=== PATIENT | male | born 1965 | race Caucasian/White ===

== ENCOUNTER 2021-12-21 16:49 | Inpatient (IN) | payer OTHER ==
[2021-12-21 19:17] VITALS: BMI 26.5
[2021-12-21] MEDS ORDERED: P-EPHED 60MG/TRIPROLIDI 2.5MG TABLET PO PRN (19:39)
[2021-12-21] MEDS ORDERED: NICOTINE POLACRILEX 2 MG GUM BUC PRN (19:39)
[2021-12-21] MEDS ORDERED: NALOXONE HCL (KLOXXADO) 8 MG SPRAY NS PRN (19:39)
[2021-12-21] MEDS ORDERED: IBUPROFEN 600 MG TABLET (FP) PO PRN (19:39)
[2021-12-21] MEDS ORDERED: MAGNESIUM HYDROX 2400MG/30ML ORAL SUSPENSION 30 ML CUP PO PRN (19:39)
[2021-12-21] MEDS ORDERED: MAGNESIUM CITRATE 300 ML BOTTLE PO PRN (19:39)
[2021-12-21] MEDS ORDERED: IBUPROFEN 400 MG TABLET (FP) PO PRN (19:39)
[2021-12-21] MEDS ORDERED: BENZOCAINE/MENTHOL (CHLORASEPTIC ) LOZENGE MM PRN (19:39)
[2021-12-21] MEDS ORDERED: methaDONE HCL 10 MG TABLET (FOR DETOX USE ONLY) PO ONE (19:39)
[2021-12-21] MEDS ORDERED: NALOXONE HCL 0.4 MG/ML VIAL IM PRN (19:39)
[2021-12-21] MEDS ORDERED: PROCHLORPERAZINE MALEATE 5 MG TABLET PO PRN (19:39)
[2021-12-21] MEDS ORDERED: MAG HYDROX/AL HYDROX/SIMETH 30 ML UNIT-DOSE CUP PO PRN (19:39)
[2021-12-21] MEDS ORDERED: ACETAMINOPHEN 325 MG TABLET (FP) PO PRN (19:39)
[2021-12-21] MEDS ORDERED: guaiFENesin 200 MG/10 ML 10 ML UNIT-DOSE CUPS PO PRN (19:39)
[2021-12-21] MEDS: diazePAM 5 MG TABLET PO SCH (23:11)
[2021-12-21] MEDS: THIAMINE HCL 100 MG TABLET (FP) PO SCH (23:11)
[2021-12-21] MEDS: MELATONIN 5 MG TABLETS PO SCH (23:11)
[2021-12-22 09:06] LABS: ALBUMIN 3.2 g/dl (3.4-5.0); BLOOD UREA NITROGEN 12.5 mg/dL (7-18); CALCIUM 8.8 mg/dL (8.5-10.1); HEMATOCRIT 41.5 % (35.4-49); HEMOGLOBIN 14.1 GM/dL (11.7-16.9); MCH 28.5 pg (25.7-33.7); MCHC 34.1 g/dl (32.0-35.9); MEAN CELL VOLUME 83.5 fl (80-96); MEAN PLT VOLUME 9.3 fl (7.5-11.1); PLATELET COUNT 190 10^3/uL (134-434); RBC 4.96 M/mm3 (4.00-5.60); RDW 15.1 % (11.9-15.9); WHITE BLOOD COUNT 5.8 K/mm3 (4.0-10.0)
[2021-12-22] MEDS ORDERED: methaDONE HCL 10 MG TABLET (FOR DETOX USE ONLY) ONE (09:07)
[2021-12-22 09:09] LABS: CREATININE 0.9 mg/dL (0.55-1.3)
[2021-12-22 09:11] LABS: BILIRUBIN,TOTAL 0.4 mg/dL (0.2-1)
[2021-12-22 09:13] LABS: TOT PROT 6.2 g/dl (6.4-8.2)
[2021-12-22] MEDS: diazePAM 5 MG TABLET PO SCH ×2 (10:14→22:28)
[2021-12-22] MEDS: METHOCARBAMOL 500 MG TABLET PO PRN ×2 (10:14→17:27)
[2021-12-22] MEDS: LOPERAMIDE HCL 2 MG CAPSULE PO PRN (10:16)
[2021-12-22] MEDS: PRENATAL VITAMINS W/ FOLIC ACID TABLET (FP) PO SCH (11:21)
[2021-12-22] MEDS: NICOTINE 21 MG/24 HOURS TOPICAL PATCH TD SCH (11:21)
[2021-12-22] MEDS: cloNIDine HCL 0.1 MG TABLET PO PRN ×2 (15:45→22:29)
[2021-12-22] MEDS: ACETAMINOPHEN 325 MG TABLET (FP) PO PRN (19:19)
[2021-12-22] MEDS: THIAMINE HCL 100 MG TABLET (FP) PO SCH (22:28)
[2021-12-22] MEDS: MELATONIN 5 MG TABLETS PO SCH (22:30)
[2021-12-23] MEDS: METHOCARBAMOL 500 MG TABLET PO PRN ×4 (00:48→22:12)
[2021-12-23] MEDS: cloNIDine HCL 0.1 MG TABLET PO PRN ×2 (08:38→18:25)
[2021-12-23] MEDS: DICYCLOMINE HCL 10 MG CAPSULE PO PRN (08:38)
[2021-12-23] MEDS: LITHIUM CARBONATE 450 MG TABLET.ER PO SCH ×3 (08:55→13:31)
[2021-12-23] MEDS ORDERED: methaDONE HCL 10 MG TABLET (FOR DETOX USE ONLY) PO ONE (10:00)
[2021-12-23] MEDS: diazePAM 5 MG TABLET PO SCH ×2 (10:18→22:11)
[2021-12-23] MEDS: NICOTINE 21 MG/24 HOURS TOPICAL PATCH TD SCH (10:19)
[2021-12-23] MEDS: PRENATAL VITAMINS W/ FOLIC ACID TABLET (FP) PO SCH (10:19)
[2021-12-23] MEDS: LOPERAMIDE HCL 2 MG CAPSULE PO PRN ×2 (11:51→17:41)
[2021-12-23] MEDS: ACETAMINOPHEN 325 MG TABLET (FP) PO PRN (11:51)
[2021-12-23] MEDS: LITHIUM CARBONATE PO SCH ×2 (13:31→22:11)
[2021-12-23] MEDS: BISMUTH SUBSALICYLATE 524 MG/30 ML PO PRN ×2 (14:16→15:51)
[2021-12-23] MEDS: SPIRONOLACTONE 25 MG TABLET PO SCH (15:29)
[2021-12-23 17:17] VITALS: RESP 18
[2021-12-23] MEDS ORDERED: ONDANSETRON *ODT* 4 MG TABLET SL ONE (17:29)
[2021-12-23] MEDS ORDERED: INSULIN SLIDING SCALE (NOVOLOG) 1 VIAL SQ SCH (18:58)
[2021-12-23] MEDS ORDERED: INSULIN (NOVOLOG) ASPART 100 UNITS/ML 10ML VIAL SQ ONE (19:04)
[2021-12-23] MEDS ORDERED: INSULIN (NOVOLOG) ASPART 100 UNITS/ML 10ML VIAL ONE (19:16)
[2021-12-23] MEDS ORDERED: GABAPENTIN 400 MG CAPSULE PO SCH (22:00)
[2021-12-23] MEDS: MELATONIN 5 MG TABLETS PO SCH (22:11)
[2021-12-23] MEDS: THIAMINE HCL 100 MG TABLET (FP) PO SCH (22:11)
[2021-12-23] MEDS: CARVEDILOL 12.5 MG TABLET (FP) PO SCH (22:11)
[2021-12-24] MEDS: cloNIDine HCL 0.1 MG TABLET PO PRN ×2 (04:26→14:21)
[2021-12-24] MEDS: DICYCLOMINE HCL 10 MG CAPSULE PO PRN (04:26)
[2021-12-24] MEDS: METHOCARBAMOL 500 MG TABLET PO PRN ×2 (04:26→11:54)
[2021-12-24] MEDS ORDERED: INSULIN SLIDING SCALE (NOVOLOG) 1 VIAL SQ SCH (07:00)
[2021-12-24] MEDS ORDERED: INSULIN (NOVOLOG) ASPART 100 UNITS/ML 10ML VIAL ONE (08:20)
[2021-12-24] MEDS ORDERED: methaDONE HCL 10 MG TABLET (FOR DETOX USE ONLY) ONE (09:27)
[2021-12-24] MEDS: CARVEDILOL 12.5 MG TABLET (FP) PO SCH (10:05)
[2021-12-24] MEDS: PRENATAL VITAMINS W/ FOLIC ACID TABLET (FP) PO SCH (10:05)
[2021-12-24] MEDS: SPIRONOLACTONE 25 MG TABLET PO SCH (10:05)
[2021-12-24] MEDS: LITHIUM CARBONATE PO SCH (10:06)
[2021-12-24] MEDS: diazePAM 5 MG TABLET PO SCH (10:06)
[2021-12-24] MEDS: NICOTINE 21 MG/24 HOURS TOPICAL PATCH TD SCH (10:07)
[2021-12-24] MEDS: LOPERAMIDE HCL 2 MG CAPSULE PO PRN (10:59)
[2021-12-24 13:26] VITALS: BP 134/71; PULSE 50; TEMP 98
[2021-12-24] MEDS ORDERED: INSULIN (NOVOLOG) ASPART 100 UNITS/ML 10ML VIAL SQ SCH (16:30)
[2021-12-25] MEDS ORDERED: methaDONE HCL 10 MG TABLET (FOR DETOX USE ONLY) PO ONE (10:00)
== END 2021-12-24 15:46 | disposition left against medical advice (07) | DRG 770 ==
LOC: YASAS 16:49 → Y6N 21:33
PROVIDERS: ADMIT Allergy & Immunology; ATTEND Surgery
PROC: HZ2ZZZZ Detoxification Services for Substance Abuse Treatment (ICD-10-PCS; principal; 2021-12-21)
DX: F11.23 Opioid dependence with withdrawal (principal); F10.230 Alcohol dependence with withdrawal, uncomplicated; F14.20 Cocaine dependence, uncomplicated; F12.20 Cannabis dependence, uncomplicated; F17.210 Nicotine dependence, cigarettes, uncomplicated; F19.282 Other psychoactive substance dependence with psychoactive substance-induced sleep disorder; F19.280 Other psychoactive substance dependence with psychoactive substance-induced anxiety disorder; F19.24 Other psychoactive substance dependence with psychoactive substance-induced mood disorder; F32.9 Major depressive disorder, single episode, unspecified; G40.909 Epilepsy, unspecified, not intractable, without status epilepticus; I25.10 Atherosclerotic heart disease of native coronary artery without angina pectoris; I11.0 Hypertensive heart disease with heart failure; I50.9 Heart failure, unspecified; E78.5 Hyperlipidemia, unspecified; E11.9 Type 2 diabetes mellitus without complications; K21.9 Gastro-esophageal reflux disease without esophagitis; B18.2 Chronic viral hepatitis C; Z88.8 Allergy status to other drugs, medicaments and biological substances; Z91.013 Allergy to seafood
CPT/HCPCS: 36415; 80053; 80178; 82962; 85027; 86780; 93005; 93010; C9803-CS; J0735; Q0162; U0003; U0005

== ENCOUNTER 2022-03-13 10:19 | Inpatient (IN) | payer OTHER ==
[2022-03-13 11:05] VITALS: BMI 26.1
[2022-03-13] MEDS ORDERED: MAGNESIUM CITRATE 300 ML BOTTLE PO PRN (11:58)
[2022-03-13] MEDS ORDERED: NALOXONE HCL (KLOXXADO) 8 MG SPRAY NS PRN (11:58)
[2022-03-13] MEDS ORDERED: DICYCLOMINE HCL 10 MG CAPSULE PO PRN (11:58)
[2022-03-13] MEDS ORDERED: BISMUTH SUBSALICYLATE 262 MG/15 ML BTL PO PRN (11:58)
[2022-03-13] MEDS ORDERED: ONDANSETRON *ODT* 4 MG TABLET SL PRN (11:58)
[2022-03-13] MEDS ORDERED: BENZOCAINE/MENTHOL (CHLORASEPTIC ) LOZENGE MM PRN (11:58)
[2022-03-13] MEDS ORDERED: LOPERAMIDE HCL 2 MG CAPSULE PO PRN (11:58)
[2022-03-13] MEDS ORDERED: ACETAMINOPHEN 325 MG TABLET (FP) PO PRN ×2 (11:58)
[2022-03-13] MEDS ORDERED: IBUPROFEN 400 MG TABLET (FP) PO PRN (11:58)
[2022-03-13] MEDS ORDERED: MAG HYDROX/AL HYDROX/SIMETH 30 ML UNIT-DOSE CUP PO PRN (11:58)
[2022-03-13] MEDS ORDERED: INSULIN (NOVOLOG) ASPART 100 UNITS/ML 10ML VIAL ONE ×2 (12:17→17:15)
[2022-03-13] MEDS ORDERED: INSULIN (NOVOLOG) ASPART 100 UNITS/ML 10ML VIAL SQ ONE (12:22)
[2022-03-13] MEDS: hydrOXYzine PAMOATE 25 MG CAPSULE (FP) PO PRN (12:31)
[2022-03-13] MEDS: METHOCARBAMOL 500 MG TABLET PO PRN (12:31)
[2022-03-13] MEDS: chlordiazePOXIDE HCL 25 MG CAPSULE PO SCH ×2 (17:26→22:00)
[2022-03-13] MEDS: INSULIN SLIDING SCALE (NOVOLOG) 1 VIAL SQ SCH (17:29)
[2022-03-13 19:08] LABS: HEMATOCRIT 43.5 % (35.4-49); HEMOGLOBIN 14.7 GM/dL (11.7-16.9); MCH 30.6 pg (25.7-33.7); MCHC 33.8 g/dl (32.0-35.9); MEAN CELL VOLUME 90.6 fl (80-96); MEAN PLT VOLUME 9.5 fl (7.5-11.1); PLATELET COUNT 196 10^3/uL (134-434); RBC 4.81 M/mm3 (4.00-5.60); RDW 13.9 % (11.9-15.9); WHITE BLOOD COUNT 4.9 K/mm3 (4.0-10.0)
[2022-03-13 19:12] LABS: ALBUMIN 3.5 g/dl (3.4-5.0)
[2022-03-13 19:15] LABS: BLOOD UREA NITROGEN 19.1 mg/dL (7-18)
[2022-03-13 19:17] LABS: CREATININE 1.1 mg/dL (0.55-1.3)
[2022-03-13 19:19] LABS: BILIRUBIN,TOTAL 0.3 mg/dL (0.2-1); TOT PROT 6.3 g/dl (6.4-8.2)
[2022-03-13] MEDS: THIAMINE HCL 100 MG TABLET (FP) PO SCH (21:57)
[2022-03-13] MEDS: CARVEDILOL 12.5 MG TABLET (FP) PO SCH (21:58)
[2022-03-13] MEDS ORDERED: MELATONIN 5 MG TABLETS PO SCH (22:00)
[2022-03-14] MEDS: chlordiazePOXIDE HCL 25 MG CAPSULE PO SCH ×4 (06:27→22:05)
[2022-03-14] MEDS ORDERED: INSULIN (NOVOLOG) ASPART 100 UNITS/ML 10ML VIAL ONE ×4 (07:41→22:14)
[2022-03-14] MEDS: METHOCARBAMOL 500 MG TABLET PO PRN ×2 (07:42→19:32)
[2022-03-14] MEDS: hydrOXYzine PAMOATE 25 MG CAPSULE (FP) PO PRN (07:42)
[2022-03-14] MEDS: IBUPROFEN 600 MG TABLET (FP) PO PRN (07:42)
[2022-03-14] MEDS: INSULIN SLIDING SCALE (NOVOLOG) 1 VIAL SQ SCH ×5 (07:43→22:13)
[2022-03-14] MEDS ORDERED: METHADONE PO SCH (09:30)
[2022-03-14] MEDS: PRENATAL VITAMINS W/ FOLIC ACID TABLET (FP) PO SCH (10:23)
[2022-03-14] MEDS: CARVEDILOL 12.5 MG TABLET (FP) PO SCH ×2 (10:25→22:06)
[2022-03-14] MEDS: MAGNESIUM HYDROX 2400MG/30ML ORAL SUSPENSION 30 ML CUP PO PRN (13:51)
[2022-03-14] MEDS: chlordiazePOXIDE HCL 25 MG CAPSULE PO PRN ×2 (13:53→19:33)
[2022-03-14] MEDS: NICOTINE 10 MG CARTRIDGE (INHALER) IH PRN (20:39)
[2022-03-14] MEDS: SUVOREXANT 10 MG TABLET PO PRN (22:06)
[2022-03-14] MEDS: THIAMINE HCL 100 MG TABLET (FP) PO SCH (22:08)
[2022-03-15] MEDS: IBUPROFEN 600 MG TABLET (FP) PO PRN ×2 (00:46→10:27)
[2022-03-15] MEDS: chlordiazePOXIDE HCL 10 MG CAPSULE PO PRN ×3 (00:47→20:24)
[2022-03-15] MEDS: NICOTINE 10 MG CARTRIDGE (INHALER) IH PRN ×2 (00:48→10:33)
[2022-03-15] MEDS: chlordiazePOXIDE HCL 10 MG CAPSULE PO SCH ×4 (05:42→22:27)
[2022-03-15] MEDS ORDERED: INSULIN (NOVOLOG) ASPART 100 UNITS/ML 10ML VIAL ONE ×4 (05:45→23:14)
[2022-03-15] MEDS: INSULIN SLIDING SCALE (NOVOLOG) 1 VIAL SQ SCH ×4 (06:30→22:28)
[2022-03-15] MEDS: PRENATAL VITAMINS W/ FOLIC ACID TABLET (FP) PO SCH (10:24)
[2022-03-15] MEDS: CARVEDILOL 12.5 MG TABLET (FP) PO SCH ×2 (10:24→22:27)
[2022-03-15] MEDS: METHOCARBAMOL 500 MG TABLET PO PRN ×2 (10:27→17:56)
[2022-03-15] MEDS: MAGNESIUM HYDROX 2400MG/30ML ORAL SUSPENSION 30 ML CUP PO PRN (11:36)
[2022-03-15] MEDS: hydrOXYzine PAMOATE 25 MG CAPSULE (FP) PO PRN ×3 (13:19→22:28)
[2022-03-15] MEDS: THIAMINE HCL 100 MG TABLET (FP) PO SCH (22:27)
[2022-03-15] MEDS: SUVOREXANT 10 MG TABLET PO PRN (22:29)
[2022-03-16] MEDS: METHOCARBAMOL 500 MG TABLET PO PRN ×2 (02:14→10:18)
[2022-03-16] MEDS ORDERED: chlordiazePOXIDE HCL 10 MG CAPSULE PO SCH (05:00)
[2022-03-16] MEDS: NICOTINE 10 MG CARTRIDGE (INHALER) IH PRN ×2 (07:15→10:25)
[2022-03-16] MEDS ORDERED: INSULIN (NOVOLOG) ASPART 100 UNITS/ML 10ML VIAL ONE (08:16)
[2022-03-16] MEDS: INSULIN SLIDING SCALE (NOVOLOG) 1 VIAL SQ SCH ×2 (08:23→11:32)
[2022-03-16] MEDS: PRENATAL VITAMINS W/ FOLIC ACID TABLET (FP) PO SCH (10:18)
[2022-03-16] MEDS: hydrOXYzine PAMOATE 25 MG CAPSULE (FP) PO PRN (10:18)
[2022-03-16] MEDS: CARVEDILOL 12.5 MG TABLET (FP) PO SCH (10:18)
[2022-03-16] MEDS ORDERED: NICOTINE POLACRILEX 4 MG GUM BUC PRN (11:34)
[2022-03-16] MEDS ORDERED: NICOTINE 21 MG/24 HOURS TOPICAL PATCH TD SCH (11:45)
[2022-03-16 15:34] VITALS: BP 123/50; PULSE 60; RESP 19; TEMP 97.7
[2022-03-16] MEDS ORDERED: INSULIN (LEVEMIR) 100 UNITS/ML UNITS SQ SCH (22:00)
[2022-03-17] MEDS ORDERED: chlordiazePOXIDE HCL 10 MG CAPSULE PO ONE (05:00)
== END 2022-03-16 16:45 | disposition home or self-care (01) | DRG 773 ==
LOC: YASAS 10:19 → Y6N 11:52
PROVIDERS: ADMIT Allergy & Immunology; ATTEND Surgery
PROC: HZ2ZZZZ Detoxification Services for Substance Abuse Treatment (ICD-10-PCS; principal; 2022-03-13)
DX: F10.230 Alcohol dependence with withdrawal, uncomplicated (principal); F11.20 Opioid dependence, uncomplicated; F14.20 Cocaine dependence, uncomplicated; F16.20 Hallucinogen dependence, uncomplicated; F17.210 Nicotine dependence, cigarettes, uncomplicated; I25.10 Atherosclerotic heart disease of native coronary artery without angina pectoris; I11.0 Hypertensive heart disease with heart failure; I50.9 Heart failure, unspecified; K21.9 Gastro-esophageal reflux disease without esophagitis; E11.65 Type 2 diabetes mellitus with hyperglycemia; Z79.4 Long term (current) use of insulin; Z86.19 Personal history of other infectious and parasitic diseases; Z88.8 Allergy status to other drugs, medicaments and biological substances; Z91.013 Allergy to seafood
CPT/HCPCS: 36415; 80053; 82962; 85027; 86780; 87811; C9803-CS; U0003; U0005

== ENCOUNTER 2022-05-19 10:43 | Inpatient (IN) | payer OTHER ==
[2022-05-19 11:38] VITALS: BMI 25.0
[2022-05-19] MEDS ORDERED: MAG HYDROX/AL HYDROX/SIMETH 30 ML UNIT-DOSE CUP PO PRN (12:00)
[2022-05-19] MEDS ORDERED: chlordiazePOXIDE HCL 25 MG CAPSULE PO ONE (12:00)
[2022-05-19] MEDS ORDERED: MAGNESIUM HYDROX 2400MG/30ML ORAL SUSPENSION 30 ML CUP PO PRN (12:00)
[2022-05-19] MEDS ORDERED: ACETAMINOPHEN 325 MG TABLET (FP) PO PRN (12:00)
[2022-05-19] MEDS ORDERED: POLYETHYLENE GLYCOL (HEALTHYLAX) 3350 17 GM PACKET PO PRN (12:00)
[2022-05-19] MEDS ORDERED: DICYCLOMINE HCL 10 MG CAPSULE PO PRN (12:00)
[2022-05-19] MEDS ORDERED: LOPERAMIDE HCL 2 MG CAPSULE PO PRN (12:00)
[2022-05-19] MEDS ORDERED: BISMUTH SUBSALICYLATE 262 MG/15 ML BTL PO PRN (12:00)
[2022-05-19] MEDS ORDERED: BENZOCAINE/MENTHOL (CHLORASEPTIC ) LOZENGE MM PRN (12:00)
[2022-05-19] MEDS ORDERED: NALOXONE HCL (KLOXXADO) 8 MG SPRAY NS PRN (12:00)
[2022-05-19] MEDS ORDERED: ONDANSETRON *ODT* 4 MG TABLET SL PRN (12:00)
[2022-05-19] MEDS ORDERED: hydrOXYzine PAMOATE 25 MG CAPSULE (FP) PO PRN (12:00)
[2022-05-19] MEDS: cloNIDine HCL 0.1 MG TABLET PO SCH ×2 (14:29→22:18)
[2022-05-19] MEDS: METHOCARBAMOL 500 MG TABLET PO PRN (14:29)
[2022-05-19] MEDS: NICOTINE 21 MG/24 HOURS TOPICAL PATCH TD SCH (14:31)
[2022-05-19] MEDS: PRENATAL VITAMINS W/ FOLIC ACID TABLET (FP) PO SCH (14:31)
[2022-05-19] MEDS: chlordiazePOXIDE HCL 25 MG CAPSULE PO SCH ×3 (14:45→22:17)
[2022-05-19 17:35] LABS: HEMATOCRIT 41.4 % (35.4-49); HEMOGLOBIN 13.6 GM/dL (11.7-16.9); MCH 29.6 pg (25.7-33.7); MCHC 32.9 g/dl (32.0-35.9); MEAN CELL VOLUME 89.9 fl (80-96); MEAN PLT VOLUME 9.7 fl (7.5-11.1); PLATELET COUNT 240 10^3/uL (134-434); RDW 13.4 % (11.9-15.9); WHITE BLOOD COUNT 6.1 K/mm3 (4.0-10.0)
[2022-05-19] MEDS: ACETAMINOPHEN 325 MG TABLET (FP) PO PRN (17:35)
[2022-05-19 17:42] LABS: ALBUMIN 3.1 g/dl (3.4-5.0); CALCIUM 8.7 mg/dL (8.5-10.1)
[2022-05-19 17:43] LABS: BLOOD UREA NITROGEN 10.6 mg/dL (7-18)
[2022-05-19 17:46] LABS: CREATININE 1.1 mg/dL (0.55-1.3)
[2022-05-19 17:47] LABS: BILIRUBIN,TOTAL 0.5 mg/dL (0.2-1); TOT PROT 6.2 g/dl (6.4-8.2)
[2022-05-19] MEDS: INSULIN (LEVEMIR) 100 UNITS/ML UNITS SQ SCH (21:28)
[2022-05-19] MEDS: INSULIN SLIDING SCALE (NOVOLOG) 1 VIAL SQ SCH (21:38)
[2022-05-19] MEDS: MELATONIN 5 MG TABLETS PO SCH (22:18)
[2022-05-19] MEDS: THIAMINE HCL 100 MG TABLET (FP) PO SCH (22:18)
[2022-05-19] MEDS: LITHIUM CARBONATE 450 MG TABLET.ER PO SCH (22:20)
[2022-05-19] MEDS: CARVEDILOL 12.5 MG TABLET (FP) PO SCH (22:20)
[2022-05-20] MEDS: chlordiazePOXIDE HCL 25 MG CAPSULE PO SCH ×4 (05:40→22:13)
[2022-05-20] MEDS: ACETAMINOPHEN 325 MG TABLET (FP) PO PRN (05:44)
[2022-05-20] MEDS: cloNIDine HCL 0.1 MG TABLET PO SCH ×3 (07:04→22:11)
[2022-05-20] MEDS ORDERED: INSULIN SLIDING SCALE (NOVOLOG) 1 VIAL SQ ONE (07:40)
[2022-05-20] MEDS: INSULIN SLIDING SCALE (NOVOLOG) 1 VIAL SQ SCH ×4 (07:43→22:15)
[2022-05-20] MEDS ORDERED: methaDONE HCL 10 MG TABLET PO SCH ×2 (08:30→08:45)
[2022-05-20] MEDS ORDERED: methaDONE 80 MG, methaDONE 20 MG PO SCH (09:05)
[2022-05-20] MEDS: methaDONE 80 MG, methaDONE 20 MG PO SCH (10:19)
[2022-05-20] MEDS: PRENATAL VITAMINS W/ FOLIC ACID TABLET (FP) PO SCH (10:19)
[2022-05-20] MEDS: NICOTINE 21 MG/24 HOURS TOPICAL PATCH TD SCH (10:19)
[2022-05-20] MEDS: NICOTINE 10 MG CARTRIDGE (INHALER) IH PRN (10:24)
[2022-05-20] MEDS: CARVEDILOL 12.5 MG TABLET (FP) PO SCH ×2 (11:05→22:12)
[2022-05-20] MEDS: SPIRONOLACTONE 25 MG TABLET PO SCH (11:06)
[2022-05-20] MEDS: LITHIUM CARBONATE 450 MG TABLET.ER PO SCH ×2 (11:09→22:13)
[2022-05-20] MEDS: METHOCARBAMOL 500 MG TABLET PO PRN (11:20)
[2022-05-20] MEDS: chlordiazePOXIDE HCL 25 MG CAPSULE PO PRN (13:51)
[2022-05-20] MEDS: IBUPROFEN 600 MG TABLET (FP) PO PRN (20:49)
[2022-05-20] MEDS: THIAMINE HCL 100 MG TABLET (FP) PO SCH (22:11)
[2022-05-20] MEDS: INSULIN (LEVEMIR) 100 UNITS/ML UNITS SQ SCH (22:17)
[2022-05-20] MEDS: MELATONIN 5 MG TABLETS PO SCH (22:48)
[2022-05-21] MEDS: chlordiazePOXIDE HCL 25 MG CAPSULE PO PRN ×3 (00:55→19:36)
[2022-05-21] MEDS: methaDONE 80 MG, methaDONE 20 MG PO SCH (05:31)
[2022-05-21] MEDS: chlordiazePOXIDE HCL 25 MG CAPSULE PO SCH ×4 (05:32→22:18)
[2022-05-21] MEDS: cloNIDine HCL 0.1 MG TABLET PO SCH ×3 (06:33→22:16)
[2022-05-21] MEDS: IBUPROFEN 600 MG TABLET (FP) PO PRN (06:33)
[2022-05-21] MEDS: INSULIN SLIDING SCALE (NOVOLOG) 1 VIAL SQ SCH ×4 (07:49→22:21)
[2022-05-21] MEDS: SPIRONOLACTONE 25 MG TABLET PO SCH (10:17)
[2022-05-21] MEDS: CARVEDILOL 12.5 MG TABLET (FP) PO SCH ×2 (10:17→22:17)
[2022-05-21] MEDS: PRENATAL VITAMINS W/ FOLIC ACID TABLET (FP) PO SCH (10:17)
[2022-05-21] MEDS: LITHIUM CARBONATE 450 MG TABLET.ER PO SCH (10:17)
[2022-05-21] MEDS: ACETAMINOPHEN 325 MG TABLET (FP) PO PRN (10:19)
[2022-05-21] MEDS: NICOTINE 21 MG/24 HOURS TOPICAL PATCH TD SCH (10:20)
[2022-05-21] MEDS: METHOCARBAMOL 500 MG TABLET PO PRN (11:07)
[2022-05-21] MEDS: IBUPROFEN 400 MG TABLET (FP) PO PRN (12:27)
[2022-05-21] MEDS: NICOTINE 10 MG CARTRIDGE (INHALER) IH PRN (21:14)
[2022-05-21] MEDS: THIAMINE HCL 100 MG TABLET (FP) PO SCH (22:16)
[2022-05-21] MEDS: MELATONIN 5 MG TABLETS PO SCH (22:17)
[2022-05-21] MEDS: INSULIN (LEVEMIR) 100 UNITS/ML UNITS SQ SCH (22:22)
[2022-05-22] MEDS: IBUPROFEN 600 MG TABLET (FP) PO PRN (03:09)
[2022-05-22] MEDS: METHOCARBAMOL 500 MG TABLET PO PRN ×3 (03:09→23:17)
[2022-05-22] MEDS: chlordiazePOXIDE HCL 10 MG CAPSULE PO PRN ×3 (03:10→19:16)
[2022-05-22] MEDS: methaDONE 80 MG, methaDONE 20 MG PO SCH (05:54)
[2022-05-22] MEDS: chlordiazePOXIDE HCL 10 MG CAPSULE PO SCH ×4 (05:57→22:10)
[2022-05-22] MEDS: cloNIDine HCL 0.1 MG TABLET PO SCH ×3 (06:20→23:15)
[2022-05-22] MEDS ORDERED: INSULIN SLIDING SCALE (NOVOLOG) 1 VIAL SQ ONE (08:02)
[2022-05-22] MEDS: INSULIN SLIDING SCALE (NOVOLOG) 1 VIAL SQ SCH ×4 (08:09→22:15)
[2022-05-22] MEDS: SPIRONOLACTONE 25 MG TABLET PO SCH (10:19)
[2022-05-22] MEDS: CARVEDILOL 12.5 MG TABLET (FP) PO SCH ×2 (10:19→23:20)
[2022-05-22] MEDS: PRENATAL VITAMINS W/ FOLIC ACID TABLET (FP) PO SCH (10:19)
[2022-05-22] MEDS: NICOTINE 21 MG/24 HOURS TOPICAL PATCH TD SCH (10:22)
[2022-05-22] MEDS: NICOTINE 10 MG CARTRIDGE (INHALER) IH PRN ×2 (10:54→19:47)
[2022-05-22 11:59] LABS: BLOOD UREA NITROGEN 14.7 mg/dL (7-18)
[2022-05-22 12:00] LABS: CALCIUM 9.9 mg/dL (8.5-10.1)
[2022-05-22 12:02] LABS: CREATININE 1.2 mg/dL (0.55-1.3)
[2022-05-22] MEDS: IBUPROFEN 400 MG TABLET (FP) PO PRN (17:52)
[2022-05-22] MEDS: THIAMINE HCL 100 MG TABLET (FP) PO SCH (22:11)
[2022-05-22] MEDS: MELATONIN 5 MG TABLETS PO SCH (22:11)
[2022-05-22] MEDS: INSULIN (LEVEMIR) 100 UNITS/ML UNITS SQ SCH (22:18)
[2022-05-22] MEDS: ACETAMINOPHEN 325 MG TABLET (FP) PO PRN (23:17)
[2022-05-23] MEDS: IBUPROFEN 600 MG TABLET (FP) PO PRN (03:16)
[2022-05-23] MEDS ORDERED: chlordiazePOXIDE HCL 10 MG CAPSULE PO SCH (05:00)
[2022-05-23] MEDS: methaDONE 80 MG, methaDONE 20 MG PO SCH (05:30)
[2022-05-23] MEDS: cloNIDine HCL 0.1 MG TABLET PO SCH ×2 (06:17→13:22)
[2022-05-23] MEDS ORDERED: INSULIN SLIDING SCALE (NOVOLOG) 1 VIAL SQ ONE (06:28)
[2022-05-23] MEDS: INSULIN SLIDING SCALE (NOVOLOG) 1 VIAL SQ SCH ×2 (06:49→11:51)
[2022-05-23] MEDS: METHOCARBAMOL 500 MG TABLET PO PRN (06:54)
[2022-05-23] MEDS: ACETAMINOPHEN 325 MG TABLET (FP) PO PRN (06:54)
[2022-05-23] MEDS: NICOTINE 10 MG CARTRIDGE (INHALER) IH PRN ×2 (07:30→11:44)
[2022-05-23] MEDS: PRENATAL VITAMINS W/ FOLIC ACID TABLET (FP) PO SCH (10:29)
[2022-05-23] MEDS: NICOTINE 21 MG/24 HOURS TOPICAL PATCH TD SCH (10:29)
[2022-05-23] MEDS: CARVEDILOL 12.5 MG TABLET (FP) PO SCH (10:29)
[2022-05-23] MEDS: SPIRONOLACTONE 25 MG TABLET PO SCH (10:29)
[2022-05-23 14:48] VITALS: BP 129/68; PULSE 62; RESP 18; TEMP 97.1
[2022-05-23] MEDS ORDERED: INSULIN (LEVEMIR) 100 UNITS/ML UNITS SQ SCH (22:00)
[2022-05-24] MEDS ORDERED: chlordiazePOXIDE HCL 10 MG CAPSULE PO ONE (05:00)
== END 2022-05-23 15:24 | disposition home or self-care (01) | DRG 773 ==
LOC: YASAS 10:43 → Y3N 13:52
PROVIDERS: ADMIT Allergy & Immunology; ATTEND Surgery
PROC: HZ2ZZZZ Detoxification Services for Substance Abuse Treatment (ICD-10-PCS; principal; 2022-05-19)
DX: F11.20 Opioid dependence, uncomplicated (principal); F14.20 Cocaine dependence, uncomplicated; F12.20 Cannabis dependence, uncomplicated; F17.210 Nicotine dependence, cigarettes, uncomplicated; F31.9 Bipolar disorder, unspecified; F41.9 Anxiety disorder, unspecified; F90.9 Attention-deficit hyperactivity disorder, unspecified type; I25.10 Atherosclerotic heart disease of native coronary artery without angina pectoris; I11.0 Hypertensive heart disease with heart failure; I50.9 Heart failure, unspecified; E11.65 Type 2 diabetes mellitus with hyperglycemia; Z79.4 Long term (current) use of insulin; E78.5 Hyperlipidemia, unspecified; K21.9 Gastro-esophageal reflux disease without esophagitis; Z86.69 Personal history of other diseases of the nervous system and sense organs; Z86.19 Personal history of other infectious and parasitic diseases; Z88.8 Allergy status to other drugs, medicaments and biological substances; Z91.013 Allergy to seafood
CPT/HCPCS: 36415; 80048; 80053; 80178; 82962; 85027; 86780; C9803-CS; Q0162; U0003; U0005

== ENCOUNTER 2023-01-23 13:32 | Inpatient (IN) | payer OTHER ==
[2023-01-23 14:25] VITALS: BMI 29.0
[2023-01-23] MEDS ORDERED: MAGNESIUM HYDROX 2400MG/30ML ORAL SUSPENSION 30 ML CUP PO PRN (15:10)
[2023-01-23] MEDS ORDERED: POLYETHYLENE GLYCOL (HEALTHYLAX) 3350 17 GM PACKET PO PRN (15:10)
[2023-01-23] MEDS ORDERED: P-EPHED 60MG/TRIPROLIDI 2.5MG TABLET PO PRN (15:10)
[2023-01-23] MEDS ORDERED: NICOTINE POLACRILEX 2 MG GUM BUC PRN (15:10)
[2023-01-23] MEDS ORDERED: guaiFENesin 600 MG TABLET.ER (FP) PO PRN (15:10)
[2023-01-23] MEDS ORDERED: IBUPROFEN 400 MG TABLET (FP) PO PRN (15:10)
[2023-01-23] MEDS ORDERED: BENZOCAINE/MENTHOL (CHLORASEPTIC ) LOZENGE MM PRN (15:10)
[2023-01-23] MEDS ORDERED: BENZONATATE 200 MG CAPSULE PO PRN (15:10)
[2023-01-23] MEDS ORDERED: ONDANSETRON *ODT* 4 MG TABLET SL PRN (15:10)
[2023-01-23] MEDS ORDERED: MAG HYDROX/AL HYDROX/SIMETH 30 ML UNIT-DOSE CUP PO PRN (15:10)
[2023-01-23] MEDS ORDERED: NALOXONE HCL (KLOXXADO) 8 MG SPRAY NS PRN (15:10)
[2023-01-23] MEDS ORDERED: ACETAMINOPHEN 325 MG TABLET (FP) PO PRN (15:10)
[2023-01-23] MEDS ORDERED: NALOXONE HCL 0.4 MG/ML VIAL IM PRN (15:10)
[2023-01-23] MEDS ORDERED: INSULIN (NOVOLOG) ASPART 100 UNITS/ML 10ML VIAL ONE (16:39)
[2023-01-23] MEDS: INSULIN SLIDING SCALE (NOVOLOG) 1 VIAL SQ SCH ×2 (16:41→22:21)
[2023-01-23] MEDS: chlordiazePOXIDE HCL 25 MG CAPSULE PO PRN (18:25)
[2023-01-23] MEDS: THIAMINE HCL 100 MG TABLET (FP) PO SCH (22:19)
[2023-01-23] MEDS: MELATONIN 5 MG TABLETS PO SCH (22:19)
[2023-01-23] MEDS: levETIRAcetam 500 MG TABLET (FP) PO SCH (22:19)
[2023-01-23] MEDS: chlordiazePOXIDE HCL 25 MG CAPSULE PO SCH (22:21)
[2023-01-24] MEDS: METHOCARBAMOL 500 MG TABLET PO PRN ×3 (00:35→17:22)
[2023-01-24] MEDS: chlordiazePOXIDE HCL 25 MG CAPSULE PO PRN ×2 (00:36→13:49)
[2023-01-24] MEDS: chlordiazePOXIDE HCL 25 MG CAPSULE PO SCH ×4 (05:45→22:00)
[2023-01-24] MEDS: INSULIN SLIDING SCALE (NOVOLOG) 1 VIAL SQ SCH ×4 (06:12→21:56)
[2023-01-24] MEDS ORDERED: INSULIN SLIDING SCALE (NOVOLOG) 1 VIAL SQ ONE (06:27)
[2023-01-24] MEDS: PRENATAL VITAMINS W/ FOLIC ACID TABLET (FP) PO SCH (10:10)
[2023-01-24] MEDS: levETIRAcetam 500 MG TABLET (FP) PO SCH ×2 (10:10→21:59)
[2023-01-24 10:40] LABS: HEMATOCRIT 37.3 % (35.4-49); HEMOGLOBIN 12.2 GM/dL (11.7-16.9); MCH 28.7 pg (25.7-33.7); MCHC 32.6 g/dl (32.0-35.9); MEAN CELL VOLUME 88.3 fl (80-96); MEAN PLT VOLUME 10.4 fl (7.5-11.1); PLATELET COUNT 158 10^3/uL (134-434); RBC 4.23 M/mm3 (4.00-5.60); WHITE BLOOD COUNT 4.1 K/mm3 (4.0-10.0)
[2023-01-24 10:41] LABS: CALCIUM 8.7 mg/dL (8.5-10.1)
[2023-01-24 10:43] LABS: ALBUMIN 2.8 g/dl (3.4-5.0); BLOOD UREA NITROGEN 13.2 mg/dL (7-18)
[2023-01-24 10:45] LABS: CREATININE 0.8 mg/dL (0.55-1.3)
[2023-01-24 10:47] LABS: BILIRUBIN,TOTAL 0.2 mg/dL (0.2-1); TOT PROT 5.6 g/dl (6.4-8.2)
[2023-01-24] MEDS ORDERED: methaDONE HCL 10 MG TABLET PO SCH (12:00)
[2023-01-24] MEDS: GABAPENTIN 300 MG CAPSULE PO SCH ×2 (15:08→21:59)
[2023-01-24] MEDS: SPIRONOLACTONE 25 MG TABLET PO SCH (15:08)
[2023-01-24] MEDS: LISINOPRIL 20 MG TABLET PO SCH (15:08)
[2023-01-24] MEDS: MELATONIN 5 MG TABLETS PO SCH (21:58)
[2023-01-24] MEDS: CARVEDILOL 12.5 MG TABLET (FP) PO SCH (21:59)
[2023-01-24] MEDS: DIVALPROEX SODIUM 500 MG TABLET E.C. PO SCH (21:59)
[2023-01-24] MEDS: THIAMINE HCL 100 MG TABLET (FP) PO SCH (21:59)
[2023-01-25] MEDS: chlordiazePOXIDE HCL 25 MG CAPSULE PO PRN (01:05)
[2023-01-25] MEDS: METHOCARBAMOL 500 MG TABLET PO PRN ×4 (01:05→22:06)
[2023-01-25] MEDS: chlordiazePOXIDE HCL 25 MG CAPSULE PO SCH ×4 (05:42→22:06)
[2023-01-25] MEDS: GABAPENTIN 300 MG CAPSULE PO SCH ×3 (05:43→22:05)
[2023-01-25] MEDS: INSULIN SLIDING SCALE (NOVOLOG) 1 VIAL SQ SCH ×4 (08:14→22:07)
[2023-01-25] MEDS: LISINOPRIL 20 MG TABLET PO SCH (10:08)
[2023-01-25] MEDS: SPIRONOLACTONE 25 MG TABLET PO SCH (10:09)
[2023-01-25] MEDS: CARVEDILOL 12.5 MG TABLET (FP) PO SCH ×2 (10:09→22:04)
[2023-01-25] MEDS: levETIRAcetam 500 MG TABLET (FP) PO SCH ×2 (10:09→22:04)
[2023-01-25] MEDS: DIVALPROEX SODIUM 500 MG TABLET E.C. PO SCH ×2 (10:09→22:05)
[2023-01-25] MEDS: PRENATAL VITAMINS W/ FOLIC ACID TABLET (FP) PO SCH (10:10)
[2023-01-25] MEDS: NICOTINE 21 MG/24 HOURS TOPICAL PATCH TD SCH (10:39)
[2023-01-25] MEDS: IBUPROFEN 600 MG TABLET (FP) PO PRN (19:21)
[2023-01-25] MEDS: MELATONIN 5 MG TABLETS PO SCH (22:04)
[2023-01-25] MEDS: THIAMINE HCL 100 MG TABLET (FP) PO SCH (22:05)
[2023-01-26] MEDS ORDERED: chlordiazePOXIDE HCL 10 MG CAPSULE PO PRN
[2023-01-26] MEDS: GABAPENTIN 300 MG CAPSULE PO SCH ×3 (05:35→22:29)
[2023-01-26] MEDS: chlordiazePOXIDE HCL 10 MG CAPSULE PO SCH ×4 (05:36→22:31)
[2023-01-26] MEDS: LOPERAMIDE HCL 2 MG CAPSULE PO PRN ×2 (05:40→15:56)
[2023-01-26] MEDS: INSULIN SLIDING SCALE (NOVOLOG) 1 VIAL SQ SCH ×3 (06:02→17:22)
[2023-01-26] MEDS: METHOCARBAMOL 500 MG TABLET PO PRN ×2 (07:36→18:36)
[2023-01-26] MEDS: IBUPROFEN 600 MG TABLET (FP) PO PRN (08:37)
[2023-01-26] MEDS: LISINOPRIL 20 MG TABLET PO SCH (09:59)
[2023-01-26] MEDS: DIVALPROEX SODIUM 500 MG TABLET E.C. PO SCH ×2 (09:59→22:29)
[2023-01-26] MEDS: levETIRAcetam 500 MG TABLET (FP) PO SCH (09:59)
[2023-01-26] MEDS: SPIRONOLACTONE 25 MG TABLET PO SCH (09:59)
[2023-01-26] MEDS: CARVEDILOL 12.5 MG TABLET (FP) PO SCH ×2 (09:59→22:29)
[2023-01-26] MEDS: PRENATAL VITAMINS W/ FOLIC ACID TABLET (FP) PO SCH (10:00)
[2023-01-26] MEDS: NICOTINE 21 MG/24 HOURS TOPICAL PATCH TD SCH (10:02)
[2023-01-26] MEDS: BISMUTH SUBSALICYLATE 524 MG/30 ML PO PRN (22:28)
[2023-01-26] MEDS: MELATONIN 5 MG TABLETS PO SCH (22:29)
[2023-01-26] MEDS: INSULIN (LEVEMIR) 100 UNITS/ML UNITS SQ SCH (22:29)
[2023-01-26] MEDS: THIAMINE HCL 100 MG TABLET (FP) PO SCH (22:29)
[2023-01-27] MEDS: METHOCARBAMOL 500 MG TABLET PO PRN ×3 (00:38→17:24)
[2023-01-27] MEDS: IBUPROFEN 600 MG TABLET (FP) PO PRN ×2 (00:38→17:25)
[2023-01-27] MEDS: BISMUTH SUBSALICYLATE 524 MG/30 ML PO PRN ×3 (01:47→11:41)
[2023-01-27] MEDS: chlordiazePOXIDE HCL 10 MG CAPSULE PO SCH ×2 (05:59→17:25)
[2023-01-27] MEDS: GABAPENTIN 300 MG CAPSULE PO SCH ×3 (06:02→21:55)
[2023-01-27] MEDS: INSULIN SLIDING SCALE (NOVOLOG) 1 VIAL SQ SCH ×3 (06:26→17:24)
[2023-01-27] MEDS: LOPERAMIDE HCL 2 MG CAPSULE PO PRN ×3 (06:31→22:57)
[2023-01-27] MEDS: DIVALPROEX SODIUM 500 MG TABLET E.C. PO SCH ×2 (09:43→21:55)
[2023-01-27] MEDS: LISINOPRIL 20 MG TABLET PO SCH (09:43)
[2023-01-27] MEDS: PRENATAL VITAMINS W/ FOLIC ACID TABLET (FP) PO SCH (09:43)
[2023-01-27] MEDS: CARVEDILOL 12.5 MG TABLET (FP) PO SCH ×2 (09:43→21:55)
[2023-01-27] MEDS: SPIRONOLACTONE 25 MG TABLET PO SCH (09:43)
[2023-01-27] MEDS: NICOTINE 21 MG/24 HOURS TOPICAL PATCH TD SCH (09:44)
[2023-01-27] MEDS ORDERED: chlordiazePOXIDE HCL 10 MG CAPSULE PO ONE ×2 (12:30→21:04)
[2023-01-27] MEDS: DIPHENOXYLATE 2.5/ATROPINE.025 1 COMBO TABLET PO PRN (15:36)
[2023-01-27] MEDS: HYDROCORTISONE 2.5% TOPICAL CREAM 30 GM TUBE RC SCH (16:58)
[2023-01-27] MEDS: THIAMINE HCL 100 MG TABLET (FP) PO SCH (21:55)
[2023-01-27] MEDS: INSULIN (LEVEMIR) 100 UNITS/ML UNITS SQ SCH (21:56)
[2023-01-27] MEDS: MELATONIN 5 MG TABLETS PO SCH (21:56)
[2023-01-28] MEDS: METHOCARBAMOL 500 MG TABLET PO PRN (02:47)
[2023-01-28] MEDS: DIPHENOXYLATE 2.5/ATROPINE.025 1 COMBO TABLET PO PRN ×2 (02:47→10:46)
[2023-01-28] MEDS ORDERED: chlordiazePOXIDE HCL 10 MG CAPSULE PO ONE (05:00)
[2023-01-28] MEDS: GABAPENTIN 300 MG CAPSULE PO SCH ×2 (05:46→13:28)
[2023-01-28] MEDS: INSULIN SLIDING SCALE (NOVOLOG) 1 VIAL SQ SCH ×2 (06:16→12:03)
[2023-01-28] MEDS: BISMUTH SUBSALICYLATE 524 MG/30 ML PO PRN (06:21)
[2023-01-28 09:02] VITALS: RESP 18
[2023-01-28] MEDS: HYDROCORTISONE 2.5% TOPICAL CREAM 30 GM TUBE RC SCH (10:43)
[2023-01-28] MEDS: PRENATAL VITAMINS W/ FOLIC ACID TABLET (FP) PO SCH (10:43)
[2023-01-28] MEDS: DIVALPROEX SODIUM 500 MG TABLET E.C. PO SCH (10:44)
[2023-01-28] MEDS: CARVEDILOL 12.5 MG TABLET (FP) PO SCH (10:44)
[2023-01-28] MEDS: SPIRONOLACTONE 25 MG TABLET PO SCH (10:44)
[2023-01-28] MEDS: LISINOPRIL 20 MG TABLET PO SCH (10:45)
[2023-01-28] MEDS: NICOTINE 21 MG/24 HOURS TOPICAL PATCH TD SCH (10:45)
[2023-01-28 12:58] VITALS: BP 132/79; PULSE 78; TEMP 97.4
== END 2023-01-28 12:57 | disposition home or self-care (01) | DRG 773 ==
LOC: YASAS 13:32 → Y3N 16:18
PROVIDERS: ADMIT Allergy & Immunology; ATTEND Allergy & Immunology
PROC: HZ2ZZZZ Detoxification Services for Substance Abuse Treatment (ICD-10-PCS; principal; 2023-01-23)
DX: F10.230 Alcohol dependence with withdrawal, uncomplicated (principal); F11.20 Opioid dependence, uncomplicated; F14.20 Cocaine dependence, uncomplicated; F12.20 Cannabis dependence, uncomplicated; F17.210 Nicotine dependence, cigarettes, uncomplicated; F31.9 Bipolar disorder, unspecified; F41.9 Anxiety disorder, unspecified; U07.1 COVID-19; I25.10 Atherosclerotic heart disease of native coronary artery without angina pectoris; I10 Essential (primary) hypertension; R56.1 Post traumatic seizures; E10.9 Type 1 diabetes mellitus without complications; Z79.4 Long term (current) use of insulin; Z87.820 Personal history of traumatic brain injury; Z86.79 Personal history of other diseases of the circulatory system; Z86.19 Personal history of other infectious and parasitic diseases; Z88.8 Allergy status to other drugs, medicaments and biological substances
CPT/HCPCS: 36415; 80053; 80164; 82962; 85027; 86780; 87635; 87811

== ENCOUNTER 2023-11-25 16:32 | Inpatient (IN) | payer OTHER ==
[2023-11-25 18:05] VITALS: BMI 30.1
[2023-11-25] MEDS ORDERED: BENZOCAINE/MENTHOL (CHLORASEPTIC ) LOZENGE MM PRN (20:39)
[2023-11-25] MEDS ORDERED: LOPERAMIDE HCL 2 MG CAPSULE PO PRN (20:39)
[2023-11-25] MEDS ORDERED: MAGNESIUM HYDROX 2400MG/30ML ORAL SUSPENSION 30 ML CUP PO PRN (20:39)
[2023-11-25] MEDS ORDERED: NICOTINE POLACRILEX 2 MG GUM BUC PRN (20:39)
[2023-11-25] MEDS ORDERED: guaiFENesin 600 MG TABLET.ER (FP) PO PRN (20:39)
[2023-11-25] MEDS ORDERED: ACETAMINOPHEN 325 MG TABLET (FP) PO PRN (20:39)
[2023-11-25] MEDS ORDERED: BENZONATATE 200 MG CAPSULE PO PRN (20:39)
[2023-11-25] MEDS ORDERED: POLYETHYLENE GLYCOL (HEALTHYLAX) 3350 17 GM PACKET PO PRN (20:39)
[2023-11-25] MEDS ORDERED: NALOXONE (NARCAN) HCL 4 MG/0.1 ML SPRAY NS PRN (20:39)
[2023-11-25] MEDS ORDERED: IBUPROFEN 400 MG TABLET (FP) PO PRN (20:39)
[2023-11-25] MEDS ORDERED: MAG HYDROX/AL HYDROX/SIMETH 30 ML UNIT-DOSE CUP PO PRN (20:39)
[2023-11-25] MEDS ORDERED: BISMUTH SUBSALICYLATE 524 MG/30 ML PO PRN (20:39)
[2023-11-25] MEDS ORDERED: NALOXONE HCL 0.4 MG/ML VIAL IM PRN (20:39)
[2023-11-25] MEDS ORDERED: chlordiazePOXIDE HCL 25 MG CAPSULE ONE (23:29)
[2023-11-25] MEDS ORDERED: MELATONIN 5 MG TABLETS ONE (23:29)
[2023-11-25] MEDS ORDERED: INSULIN (NOVOLOG) ASPART 100 UNITS/ML 10ML VIAL ONE (23:29)
[2023-11-25] MEDS: INSULIN ASPART SLIDING SCALE (NOVOLOG) 1 VIAL SQ SCH (23:34)
[2023-11-25] MEDS: chlordiazePOXIDE HCL 25 MG CAPSULE PO SCH (23:36)
[2023-11-25] MEDS: THIAMINE 100 MG TABLET PO SCH (23:37)
[2023-11-25] MEDS: MELATONIN 5 MG TABLETS PO SCH (23:38)
[2023-11-26] MEDS: chlordiazePOXIDE HCL 25 MG CAPSULE PO PRN (01:38)
[2023-11-26] MEDS ORDERED: methaDONE HCL 10 MG TABLET PO SCH (09:45)
[2023-11-26] MEDS: PRENATAL VITAMINS W/ FOLIC ACID TABLET (FP) PO SCH (10:05)
[2023-11-26] MEDS: NICOTINE 21 MG/24 HOURS TOPICAL PATCH TD SCH (10:05)
[2023-11-26] MEDS: cloNIDine HCL 0.1 MG TABLET PO PRN (12:08)
[2023-11-26] MEDS: LISINOPRIL 20 MG TABLET PO SCH (12:56)
[2023-11-26] MEDS: ONDANSETRON *ODT* 4 MG TABLET SL PRN (13:10)
[2023-11-26] MEDS: GABAPENTIN 400 MG CAPSULE PO SCH (13:10)
[2023-11-26] MEDS ORDERED: HIV POST EXPOSURE PROPHYLAXIS KIT NR ONE (13:10)
[2023-11-26 14:42] LABS: HEMATOCRIT 39.7 % (35.4-49); HEMOGLOBIN 13.3 GM/dL (11.7-16.9); MCH 28.6 pg (25.7-33.7); MCHC 33.4 g/dl (32.0-35.9); MEAN CELL VOLUME 85.5 fl (80-96); PLATELET COUNT 214 10^3/uL (134-434); RBC 4.64 M/mm3 (4.00-5.60); RDW 15.1 % (11.9-15.9); WHITE BLOOD COUNT 3.6 K/mm3 (4.0-10.0)
[2023-11-26 14:53] LABS: CHLORIDE 98 mmol/L (98-107); SODIUM 137 mmol/L (136-145)
[2023-11-26 15:03] LABS: CALCIUM 8.7 mg/dL (8.5-10.1)
[2023-11-26 15:04] LABS: ALBUMIN 3.3 g/dl (3.4-5.0); ANION GAP 7 mmol/L (4-13); BLOOD UREA NITROGEN 14.6 mg/dL (7-18); CO2 32 mmol/L (21-32); GLUCOSE,RANDOM 268 mg/dL (74-106)
[2023-11-26 15:07] LABS: CREATININE 0.9 mg/dL (0.55-1.3); SGPT/ALT 22 U/L (13-61)
[2023-11-26 15:09] LABS: BILIRUBIN,TOTAL 0.3 mg/dL (0.2-1); TOT PROT 6.4 g/dl (6.4-8.2)
[2023-11-26 15:10] LABS: ALK PHOS 85 U/L (45-117)
[2023-11-26 15:13] LABS: SGOT/AST 15 U/L (15-37)
[2023-11-26] MEDS: IBUPROFEN 600 MG TABLET (FP) PO PRN (17:27)
[2023-11-26] MEDS: RALTEGRAVIR POTASSIUM 400 MG TAB PO SCH (22:29)
[2023-11-26] MEDS: hydrOXYzine PAMOATE 25 MG CAPSULE (FP) PO PRN (22:29)
[2023-11-27] MEDS: chlordiazePOXIDE HCL 25 MG CAPSULE PO SCH (05:34)
[2023-11-27] MEDS: EMTRICITABINE 200MG/TENOFOVIR 300MG PO SCH (10:23)
[2023-11-27] MEDS: METHOCARBAMOL 500 MG TABLET PO PRN (13:42)
[2023-11-28] MEDS: chlordiazePOXIDE HCL 10 MG CAPSULE PO SCH (05:58)
[2023-11-28] MEDS: chlordiazePOXIDE HCL 10 MG CAPSULE PO PRN (13:06)
[2023-11-29] MEDS: chlordiazePOXIDE HCL 10 MG CAPSULE PO SCH (05:19)
[2023-11-29] MEDS: DIVALPROEX SODIUM 500 MG TABLET E.C. PO ONE (10:34)
[2023-11-29] MEDS: GABAPENTIN 400 MG CAPSULE PO SCH (13:31)
[2023-11-29] MEDS ORDERED: INSULIN ASPART SLIDING SCALE (NOVOLOG) 1 VIAL SQ ONE (16:38)
[2023-11-29] MEDS: DIVALPROEX SODIUM 500 MG TABLET E.C. PO SCH (21:30)
[2023-11-30] MEDS: chlordiazePOXIDE HCL 10 MG CAPSULE PO ONE (05:55)
[2023-11-30] MEDS: DIVALPROEX SODIUM 500 MG TABLET E.C. PO SCH (10:03)
[2023-11-30 13:09] VITALS: BP 130/65; PULSE 61; RESP 20; TEMP 97.7
== END 2023-11-30 13:21 | disposition other institution (70) | DRG 773 ==
LOC: YASAS 16:32 → Y3N 23:14
PROVIDERS: ADMIT Allergy & Immunology; ATTEND Psychiatry & Neurology Pain Medicine
PROC: HZ2ZZZZ Detoxification Services for Substance Abuse Treatment (ICD-10-PCS; principal; 2023-11-25)
DX: F10.230 Alcohol dependence with withdrawal, uncomplicated (principal); F13.230 Sedative, hypnotic or anxiolytic dependence with withdrawal, uncomplicated; F11.20 Opioid dependence, uncomplicated; F14.20 Cocaine dependence, uncomplicated; F12.20 Cannabis dependence, uncomplicated; F17.210 Nicotine dependence, cigarettes, uncomplicated; I25.10 Atherosclerotic heart disease of native coronary artery without angina pectoris; I11.0 Hypertensive heart disease with heart failure; I50.9 Heart failure, unspecified; E10.9 Type 1 diabetes mellitus without complications; Z79.4 Long term (current) use of insulin; R56.1 Post traumatic seizures; Z88.8 Allergy status to other drugs, medicaments and biological substances; Z59.00 Homelessness unspecified
CPT/HCPCS: 36415; 80053; 80305; 80307; 82962; 85027; 86780; 87811; 93005; 93010; Q0162

== ENCOUNTER 2023-11-30 13:29 | Inpatient (IN) | payer OTHER ==
[2023-11-30] MEDS ORDERED: LOPERAMIDE HCL 2 MG CAPSULE PO PRN (14:30)
[2023-11-30] MEDS ORDERED: NALOXONE (NARCAN) HCL 4 MG/0.1 ML SPRAY NS PRN (14:30)
[2023-11-30] MEDS ORDERED: NICOTINE POLACRILEX 4 MG LOZENGE BC PRN (14:30)
[2023-11-30] MEDS ORDERED: MAGNESIUM HYDROX 2400MG/30ML ORAL SUSPENSION 30 ML CUP PO PRN (14:30)
[2023-11-30] MEDS ORDERED: IBUPROFEN 400 MG TABLET (FP) PO PRN (14:30)
[2023-11-30] MEDS ORDERED: guaiFENesin 600 MG TABLET.ER (FP) PO PRN (14:30)
[2023-11-30] MEDS ORDERED: NICOTINE POLACRILEX 4 MG GUM BUC PRN (14:30)
[2023-11-30] MEDS ORDERED: ACETAMINOPHEN 325 MG TABLET (FP) PO PRN (14:30)
[2023-11-30] MEDS ORDERED: POLYETHYLENE GLYCOL (HEALTHYLAX) 3350 17 GM PACKET PO PRN (14:30)
[2023-11-30] MEDS ORDERED: BENZONATATE 200 MG CAPSULE PO PRN (14:30)
[2023-11-30] MEDS ORDERED: NALOXONE HCL 0.4 MG/ML VIAL IVPUSH PRN (14:30)
[2023-11-30] MEDS ORDERED: BENZOCAINE/MENTHOL (CHLORASEPTIC ) LOZENGE MM PRN (14:30)
[2023-11-30] MEDS ORDERED: MAG HYDROX/AL HYDROX/SIMETH 30 ML UNIT-DOSE CUP PO PRN (14:30)
[2023-11-30] MEDS: METHOCARBAMOL 500 MG TABLET PO PRN (21:11)
[2023-11-30] MEDS: MELATONIN 5 MG TABLETS PO SCH (21:11)
[2023-11-30] MEDS: clonazePAM 1 MG ODT TABLETS SL SCH (21:11)
[2023-11-30] MEDS: THIAMINE 100 MG TABLET PO SCH (21:11)
[2023-11-30] MEDS: hydrOXYzine PAMOATE 25 MG CAPSULE (FP) PO PRN (21:11)
[2023-11-30] MEDS ORDERED: PATIENT'S OWN MEDICATION (NON-FORMULARY) (Clonazepam [Klonopin] 2 MG Tablet) PO SCH (22:00)
[2023-12-01] MEDS: methaDONE HCL 10 MG TABLET PO SCH (07:54)
[2023-12-01] MEDS: PRENATAL VITAMINS W/ FOLIC ACID TABLET (FP) PO SCH (10:04)
[2023-12-01] MEDS: NICOTINE 21 MG/24 HOURS TOPICAL PATCH TD SCH (10:04)
[2023-12-01] MEDS: LISINOPRIL 20 MG TABLET PO SCH (10:05)
[2023-12-01] MEDS: RALTEGRAVIR POTASSIUM 400 MG TAB PO SCH (11:08)
[2023-12-01] MEDS: EMTRICITABINE 200MG/TENOFOVIR 300MG PO SCH (11:08)
[2023-12-01] MEDS: INSULIN ASPART SLIDING SCALE (NOVOLOG) 1 VIAL SQ SCH (12:07)
[2023-12-01] MEDS: GABAPENTIN 400 MG CAPSULE PO SCH (13:14)
[2023-12-01 15:25] LABS: HIV INTERPRETATION NEGATIVE (NEGATIVE)
[2023-12-01] MEDS ORDERED: INSULIN (NOVOLOG) ASPART 100 UNITS/ML 10ML VIAL ONE ×2 (16:46→21:13)
[2023-12-01] MEDS: IBUPROFEN 600 MG TABLET (FP) PO PRN (16:48)
[2023-12-02] MEDS ORDERED: INSULIN (NOVOLOG) ASPART 100 UNITS/ML 10ML VIAL ONE (05:49)
[2023-12-02 07:06] VITALS: RESP 17; TEMP 97.3
[2023-12-02 09:08] VITALS: BP 145/93; PULSE 60
[2023-12-02] MEDS ORDERED: INSULIN (LEVEMIR) 100 UNITS/ML UNITS SQ SCH (22:00)
== END 2023-12-02 10:43 | disposition left against medical advice (07) | DRG 770 ==
LOC: YASAS 13:29 → Y5N 13:53
PROVIDERS: ADMIT Allergy & Immunology; ATTEND Psychiatry & Neurology Pain Medicine
PROC: HZ42ZZZ Group Counseling for Substance Abuse Treatment, Cognitive-Behavioral (ICD-10-PCS; principal; 2023-11-30)
DX: F11.20 Opioid dependence, uncomplicated (principal); F10.20 Alcohol dependence, uncomplicated; F13.20 Sedative, hypnotic or anxiolytic dependence, uncomplicated; F14.20 Cocaine dependence, uncomplicated; F17.210 Nicotine dependence, cigarettes, uncomplicated; I25.10 Atherosclerotic heart disease of native coronary artery without angina pectoris; I10 Essential (primary) hypertension; F31.9 Bipolar disorder, unspecified; R56.1 Post traumatic seizures; E11.9 Type 2 diabetes mellitus without complications; Z79.4 Long term (current) use of insulin; K21.9 Gastro-esophageal reflux disease without esophagitis; Z20.6 Contact with and (suspected) exposure to human immunodeficiency virus [HIV]; Z86.69 Personal history of other diseases of the nervous system and sense organs; Z88.8 Allergy status to other drugs, medicaments and biological substances; F91.8 Other conduct disorders; Z91.199 Patient's noncompliance with other medical treatment and regimen due to unspecified reason
CPT/HCPCS: 36415; 82140; 82962; 87389